=== PATIENT | female | born 1975 | race Hispanic/Latino ===

== ENCOUNTER 2020-02-07 14:33 | Outpatient (CLI) | payer MEDICAID ==
--- NOTE | 2020-02-07 18:20 | Mammography Report ---
BILATERAL DIGITAL DIAGNOSTIC MAMMOGRAM WITH CAD , 02/07/2020 RIGHT LIMITED BREAST ULTRASOUND CLINICAL INFORMATION / INDICATION: Patient is palpating a right breast lump. TECHNIQUE: Digital bilateral mammographic imaging was performed. Spot compression views were obtained . Limited ultrasound was performed. This examination was interpreted with the benefit of Computer-Aid ed Detection (CAD) analysis. COMPARISON: This is the patient's first mammogram. FINDINGS: Breast Density: The breasts are heterogeneously dense, which may obscure small masses. MAMMOGRAPHIC FINDINGS: No suspicious calcifications or architectural distortion is identified in eith er breast. There are 2 adjacent benign-appearing masses in the right breast at 12:00, anterior depth. Both masses are in the range of 2-3 cm and correspond to the palpable lump. Similar findings are als o present in the left subareolar breast with several 2 cm well-circumscribed masses identified, most likely benign cysts. ULTRASOUND FINDINGS: Targeted ultrasound evaluation was performed of the area of interest. Sonograp hic evaluation of the right breast in the area of the palpable abnormality demonstrates a 4.7 cm simp le cyst. This appeared to be 2 adjacent cysts on mammography but is proven to be 1 large bilobed simp le cyst on ultrasound exam. There are smaller benign-appearing simple cysts in the surrounding paren chyma of the right breast. There is a hypoechoic 12 mm mass in the retroareolar right breas at 9:00 t hat is not clearly a simple cyst. This is more than likely a complicated cyst. Patient was unable to stay due to prior appointment to undergo left breast ultrasound exam. IMPRESSION: 1. The palpable lump in the right breast is proven to be a large simple benign cyst. There are additi onal smaller simple cysts scattered throughout the right breast. 2. 12 mm hypoechoic mass is present in the right breast at 9:00. I suspect this is a complicated cyst . I would recommend further evaluation with cyst aspiration to ensure mass resolves. 3. At the time of aspiration, left breast ultrasound is recommended to ensure masses identified in th e left breast mammographically are proven to be simple cysts. Follow up recommendation: Right breast cyst aspiration, left breast ultrasound BI-RADS Category 0: Incomplete. Needs additional imaging evaluation and/or prior mammograms for rachell santiago. A "normal" or negative report should not discourage follow up or biopsy of a clinically significant f inding. A written summary of these findings will be mailed to the patient. The patient will be entered into a mammography reporting system which will generate a reminder letter for the patient's next appointmen t at the appropriate interval. According to the [employer], yearly mammograms are recommended starting at age 40 and continuing as long as a woman is in good health. Breast MRI is recommended for women with an anam roximately 20-25% or greater lifetime risk of breast cancer, including women with a strong family his tory of breast or ovarian cancer and women who have been treated for Hodgkin's disease. Signer Name: Ruma Reed MD Signed: 02/07/2020 6:16 PM Workstation Name: [id number]
== END 2020-02-07 14:34 | disposition home or self-care (01) ==
LOC: SPVWC 14:33
PROVIDERS: ATTEND Internal Medicine
DX: N60.01 Solitary cyst of right breast (principal); N63.42 Unspecified lump in left breast, subareolar; N63.41 Unspecified lump in right breast, subareolar
CPT/HCPCS: 77066

== ENCOUNTER 2020-03-21 09:31 | Outpatient (CLI) | payer MEDICAID ==
--- NOTE | 2020-03-21 11:29 | Mammography Report ---
RIGHT DIAGNOSTIC MAMMOGRAM INDICATION: Status post ultrasound-guided biopsy of right 9:00 subareolar breast cystic lesion. COMPARISON: 02/07/2020. FINDINGS: Right breast CC and LM projection mammograms were obtained. These document a U-shaped biopsy marker a t the expected location of a previously noted 9:00 subareolar cystic lesion. IMPRESSION: Right breast mammographic images documenting accurate location of a U-shaped biopsy marker at site of previously noted right breast 9:00 subareolar cystic lesion. BI-RADS Category 4: Suspicious for Malignancy. Signer Name: Carlos Sanchez MD Signed: 03/21/2020 11:25 AM Workstation Name: [id number]
--- NOTE | 2020-03-21 11:31 | Ultrasound Report ---
ULTRASOUND-GUIDED CORE NEEDLE BIOPSY Right BREAST WITH CLIP PLACEMENT INDICATION: Complex cystic lesion the right breast at the 9:00 retroareolar location. FINDINGS: Informed consent was obtained. The lesion within the right breast at the 9:00 subareolar location was identified with ultrasound. The overlying skin was cleansed with chloro prep and local anesthesia wa s obtained with a 1% lidocaine solution. Under ultrasound guidance a 14-gauge spring loaded core biop sy needle was advanced to the lesion. A total of 4 core samples were obtained. A U-shaped biopsy morena er was placed to morena the site of the biopsy. Specimen samples were placed in formalin [facility]. Patient tolerated the procedure well and no immediate complications were identified. A post procedure mammogram demonstrates accurate placement of the biopsy marker. IMPRESSION: Technically successful ultrasound-guided core biopsy of right breast lesion at the 9:00 subareolar lo cation with accurate placement of a U-shaped biopsy marker. An addendum will be added to this report once pathology results are available. Signer Name: Carlos Sanchez MD Signed: 03/21/2020 11:26 AM Workstation Name: [id number]
== END 2020-03-21 09:32 | disposition home or self-care (01) ==
LOC: SPVWC 09:31
PROVIDERS: ATTEND Internal Medicine
DX: N63.11 Unspecified lump in the right breast, upper outer quadrant (principal); R92.8 Other abnormal and inconclusive findings on diagnostic imaging of breast
CPT/HCPCS: 88305

== ENCOUNTER 2020-08-07 12:45 | Outpatient (CLI) | payer OTHER ==
--- NOTE | 2020-08-07 15:03 | Ultrasound Report ---
RIGHT BREAST ULTRASOUND-GUIDED CYST ASPIRATION INDICATION: Recurrent painful breast cysts, history of benign breast biopsy in March, bilateral br east cyst aspiration in May in Dr. Cain's office with report per the patient of benign cyto logy COMPARISON: Right breast ultrasound 02/07/2020, right breast ultrasound-guided biopsy 03/21/2020 PROCEDURE: Procedure was discussed with the patient in advance. Patient has no pertinent allergies. T imeout was performed. Ultrasound was used to localize the recurrent cyst in the 12:00 position. Incid ental examination of the retroareolar area showed no suggestion of the previously biopsied abnormalit y. The 19 mm cyst at 12:00, 3 cm from the nipple, is much smaller than cysts seen in February. This i s anechoic by ultrasound and appears to be a simple cyst. Site was prepped in the usual fashion. One percent lidocaine was used for local anesthesia under sono graphic guidance. Under direct sonographic guidance a 22-gauge needle was inserted into the cyst whic h was fully aspirated. Approximately 2 cc of brownish slightly bloody fluid was aspirated and sent to pathology for cytologic examination. Needle was removed and the site was secured. Patient tolerated the procedure well and we proceeded to the left breast for aspiration. LEFT BREAST ULTRASOUND-GUIDED CYST ASPIRATION INDICATION: Recurrent painful breast cysts, history of benign breast biopsy in March, bilateral br east cyst aspiration in May in Dr. Cain's office COMPARISON: Left breast [id number] PROCEDURE: Procedure was discussed with the patient in advance. Patient has no pertinent allergies. T imeout was performed. Ultrasound was used to localize the recurrent 2.4 cyst in the retroareolar 9:00 position This is anechoic by ultrasound and appears to be a simple cyst. Cyst is much smaller than o n study in March. Site was prepped in the usual fashion. One percent lidocaine was used for local anesthesia under sono graphic guidance. Under direct sonographic guidance a 22-gauge needle was inserted into the cyst whic h was fully aspirated. Approximately 3 cc of cloudy greenish fluid was aspirated and sent to patholog y for cytologic examination. Needle was removed and the site was secured. Patient tolerated the proce dure well and left the department in good condition. IMPRESSION: Successful bilateral ultrasound-guided cyst aspiration Signer Name: Vick Enriquez MD Signed: 08/07/2020 2:58 PM Workstation Name: [id number]
== END 2020-08-07 12:46 | disposition home or self-care (01) ==
LOC: SPVWC 12:45
PROVIDERS: ATTEND Surgery
DX: N60.02 Solitary cyst of left breast (principal); N60.01 Solitary cyst of right breast
CPT/HCPCS: 76942; 88112; 88305

== ENCOUNTER 2020-10-24 12:57 | Outpatient (CLI) | payer MEDICAID, OTHER ==
--- NOTE | 2020-10-24 17:41 | Ultrasound Report ---
RIGHT DIGITAL DIAGNOSTIC MAMMOGRAM WITH CAD , 10/24/2020 RIGHT LIMITED BREAST ULTRASOUND CLINICAL INFORMATION / INDICATION: Patient states right breast pain and possible new cyst. F/U mammog kimberly, pain TECHNIQUE: Digital right mammographic imaging was performed. Limited ultrasound was performed. This e xamination was interpreted with the benefit of Computer-Aided Detection (CAD) analysis. COMPARISON: Prior mammogram 02/07/2020, 03/21/2020 and prior right breast biopsy 03/21/2020 FINDINGS: Breast Density: The breasts are heterogeneously dense, which may obscure small masses. MAMMOGRAPHIC FINDINGS: No dominant mass, suspicious calcifications, or architectural distortion in th e right breast. Previously noted large ultrasound proven cysts visible on the prior mammogram have be en aspirated and are much improved. There is a biopsy clip in the retroareolar region of the right br east. No new findings. ULTRASOUND FINDINGS: Targeted ultrasound evaluation was performed of the area of interest. Sonograp hic evaluation of the right breast demonstrates a few small cyst in the lateral aspect of the breast in the 9:00 region, none greater than 9 mm. Additionally, there is a small area of fibrocystic tissue in the 10:00 location, 6 cm from nipple measuring 9 x 4 mm. No large cyst or solid mass identified. IMPRESSION: No mammographic or sonographic evidence of malignancy in the right breast. Mild fibrocyst ic changes are noted in the lateral region of the breast. Please note the patient was also scheduled to have a left breast ultrasound but needed to leave to go to another doctor's appointment. She will be rescheduling the left breast ultrasound. Follow up recommendation: Routine yearly BI-RADS Category 2: Benign. A "normal" or negative report should not discourage follow up or biopsy of a clinically significant f inding. A written summary of these findings will be mailed to the patient. The patient will be entered into a mammography reporting system which will generate a reminder letter for the patient's next appointmen t at the appropriate interval. According to the [employer], yearly mammograms are recommended starting at age 40 and continuing as long as a woman is in good health. Breast MRI is recommended for women with an anam roximately 20-25% or greater lifetime risk of breast cancer, including women with a strong family his tory of breast or ovarian cancer and women who have been treated for Hodgkin's disease. Signer Name: Ruma Reed MD Signed: 10/24/2020 5:37 PM Workstation Name: [id number]
== END 2020-10-24 12:58 | disposition home or self-care (01) ==
LOC: SPVWC 12:57
PROVIDERS: ATTEND Surgery
DX: N60.11 Diffuse cystic mastopathy of right breast (principal)